=== PATIENT | male | born 1980 | race Two or more races ===

== ENCOUNTER 2016-09-15 05:44 | Day surgery (SDC) | payer OTHER ==
--- NOTE | 2016-09-14 14:41 | HP ---
DATE OF CLINIC: 08/24/2016 LANCE WOODS : 1980 PLANNED PROCEDURE: Left Distal Biceps Tendon Repair/Reconstruction DATE OF SURGERY: September 15, 2016 SURGEON: Keanu Reno M.D. HISTORY OF PRESENT ILLNESS Lance Woods is a 36 year old male. * Medication list reviewed with patient allergy list reviewed with patient. This is a 36-year-old gentleman with a left distal biceps tendon injury at the end of July. He was previously seen and sent for an MRI. He returns to review the MRI and discuss a path going forward. He has no pain at this point but does note significant ongoing weakness and his left arm. PAST MEDICAL AND SURGICAL HISTORY: His past medical and surgical history are unchanged. CURRENT MEDICATION * Acyclovir 200 MG Capsule unknown dose, 0 days, 0 refills SOCIAL HISTORY Behavioral: Tobacco use rarely, current smoker, and smoking status: Current some day smoker. Alcohol: Alcohol Minimal/Not often. Drug Use: Not using drugs. 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 ALLERGIES * No Known Allergies REVIEW OF SYSTEMS No recent constitutional symptoms to include fevers and chills. No recent cardiovascular symptoms to include chest pain or palpitations. No recent respiratory symptoms to include shortness of breath or recent infections. PHYSICAL FINDINGS * Vitals taken 08/24/2016 09:40 am BP-Sitting L 125/89 mmHg Pulse Rate-Sitting 76 bpm Temp-Oral 98.1 F Height 66 in Weight 185 lbs 9.6 oz Body Mass Index 30.0 kg/m2 Body Surface Area 1.94 m2 Pain Level 0 Ears, Nose, Throat: * ENT: normal. Lungs: * Clear to auscultation. Cardiovascular: Heart Rate and Rhythm: * Normal. Abdomen: * Normal. Neurological: Motor: * Dominant Hand = Right Hand. Patient is a well-developed, well-nourished male in no acute distress. They are awake, alert and conversant throughout the encounter. CARDIOVASCULAR: Intact peripheral pulses on bilateral upper extremities. No significant edema on inspection of bilateral upper extremities. NEUROLOGIC: Patient had intact coordinated composite motion of the bilateral upper extremities and sensation intact to light touch in all distributions of bilateral upper extremities. PSYCHIATRIC: Patient was oriented to person, place and time and displayed appropriate mood and affect during the encounter. SKIN: Exam of the skin on bilateral upper extremities showed no significant scars, lesions, rashes or masses. FOCUSED MUSCULOSKELETAL EXAM: Normal resting station of the shoulders, elbows and wrists. His left arm shows a hollow area just proximal to the antecubital fossa. He does not get active contraction of the biceps when he flexes the elbow against resistance. He has weakness on this side. He is about a 4/5 compared to 5/5 on the contralateral side. Sensation is intact throughout. The hand is warm and well perfused. He has full-motion, normal resting tone. IMAGING: A review of his MRI demonstrates a complete rupture of his biceps tendon with 7 cm of retraction and ongoing inflammation in the area. ASSESSMENT A 36-year-old gentleman with a complete left distal biceps tendon injury avulsed from the bicipital tuberosity. THERAPY * Patient not eligible for fall risk assessment. PLAN * Strain of musc/fasc/tend prt biceps, left arm, subs Percocet 5-325 MG TABS, 1 every 4 - 6 hours as needed, 14 days, 0 refills * Resection of long biceps tendon -left distal biceps tendon repair/reconstruction The plan will be for a repair versus reconstruction. We will have a cadaver piece available for augment if required and we will use the Arthrex distal biceps repair kit. We will see him back for surgery in 2 to 3 weeks. SURGICAL CONSENT We have discussed surgical options including left distal biceps tendon repair/reconstruction and non-operative management. The patient was counseled in detail regarding the diagnosis, treatment options available, prognosis of each treatment option and the potential risks and complications. The risks of surgery include, but are not limited to, anesthetic , neurovascular complications, pulmonary embolism, deep vein thrombosis, wound dehiscence, failure of any or all of the discussed procedures, infection of the joint or surrounding soft tissue, need for revision surgery, chronic pain, limitations in activities of daily living, inability to return to work, and loss of normal range of motion or functional use of the extremity. There is the possibility of failure over time that may require additional operative or non-operative treatment. The patient acknowledged that there are a number of perioperative risks not mentioned here and would still like to proceed. The patient is aware of and understands these risks, and wishes to proceed with the proposed surgical procedure and other procedures as indicated at the time of surgery. We will have the patient see their PCP for a preoperative medical risk assessment. The preoperative instructions were reviewed with the patient and all questions were answered. PB/sg
[2016-09-15] MEDS ORDERED: CEFAZOLIN SODIUM 2 GRAM PREMIX 100 ML IV PRN (05:45)
[2016-09-15] MEDS ORDERED: IV START KIT ONE (05:54)
[2016-09-15] MEDS ORDERED: LACTATED RINGERS 1,000 ML ONE ×2 (05:54→11:16)
[2016-09-15] MEDS ORDERED: CEFAZOLIN SODIUM 2 GRAM PREMIX 100 ML IV ONE (05:55)
[2016-09-15] MEDS ORDERED: PROPOFOL 20 ML IV ONE (06:50)
[2016-09-15] MEDS ORDERED: MIDAZOLAM HCL 1 MG/ML 2ML VIAL ONE (06:50)
[2016-09-15] MEDS ORDERED: FENTANYL 100 MCG/2 ML VIAL ONE ×4 (06:50→10:33)
[2016-09-15] MEDS ORDERED: NERVE BLOCK PROCEDURAL TRAY 1 EACH ONE (06:53)
[2016-09-15] MEDS ORDERED: ROPIVACAINE 0.5% 30 ML VIAL ONE (06:53)
[2016-09-15] MEDS ORDERED: BUPIVACAINE 0.5% (PRES FREE) 30 ML VIAL ONE (07:05)
[2016-09-15] MEDS ORDERED: ROCURONIUM BROMIDE 10 MG/ML DOSE IV ONE (08:03)
[2016-09-15] MEDS ORDERED: ONDANSETRON 4 MG/2ML 2 ML VIAL ONE (08:08)
[2016-09-15] MEDS ORDERED: DEXAMETHASONE SOD PHOS 4 MG/1 ML VIAL ONE (08:08)
[2016-09-15] MEDS ORDERED: LABETALOL HCL 5 MG/ML 20ML VIAL IV PRN (08:51)
[2016-09-15] MEDS ORDERED: ATROPINE SULFATE 0.4 MG/1 ML VIAL IV PRN (08:51)
[2016-09-15] MEDS ORDERED: NALOXONE HCL 0.4 MG/ML VIAL IV PRN (08:51)
[2016-09-15] MEDS ORDERED: HYDRALAZINE HCL 20 MG/1 ML VIAL IV PRN (08:51)
[2016-09-15] MEDS ORDERED: MEPERIDINE 25 MG/ML SYRINGE IV PRN (08:51)
[2016-09-15] MEDS ORDERED: HYDROMORPHONE HCL 1 MG/ML SYRINGE IV PRN (08:51)
[2016-09-15] MEDS ORDERED: PROMETHAZINE HCL 25 MG/ML VIAL IM PRN (08:51)
[2016-09-15] MEDS ORDERED: FENTANYL 100 MCG/2 ML VIAL IV PRN (08:51)
[2016-09-15] MEDS ORDERED: ONDANSETRON 4 MG/2ML 2 ML VIAL IV PRN ×2 (08:51→10:50)
[2016-09-15] MEDS ORDERED: LACTATED RINGERS 1,000 ML IV SCH ×2 (09:00→10:50)
--- NOTE | 2016-09-15 10:07 | PCMBPN ---
Brief Post Op Note: Date of Procedure: 09/15/16 Start Time: 929 Preoperative Diagnosis: 1. left distal biceps tendon rupture Postoperative Diagnosis: 1. Same Procedure: left distal biceps tendon repair Surgeon: Keanu Reno MD Assist: Chacorta Fairchild PA-C Anesthesia: Bret Hebert CRNA Findings: as above Condition: stable to PACU Complications: none IV Fluids: 1300 mLs of LR Urine Output: 0 mLs Estimated Blood Loss: 25 mLs Tourniquet Time: 43 min at 250 mm Hg Specimens: none Implants: Arthrex distal biceps tenodesis button and biocomposite tenodesis screw Drains: none Keanu Reno MD
[2016-09-15] MEDS ORDERED: DIPHENHYDRAMINE HCL 50 MG/1 ML VIAL IV PRN (10:50)
[2016-09-15] MEDS ORDERED: OXYCODONE/ACETAMINOPHEN 5/325 MG TABLET PO PRN (10:50)
[2016-09-15] MEDS ORDERED: ACETAMINOPHEN 325 MG TABLET PO PRN (10:50)
[2016-09-15] MEDS ORDERED: HYDROMORPHONE HCL 1 MG/ML SYRINGE ONE (11:16)
[2016-09-15] MEDS: HYDROMORPHONE HCL 1 MG/ML SYRINGE IV PRN ×2 (11:25→11:46)
[2016-09-15] MEDS ORDERED: OXYCODONE/ACETAMINOPHEN 5/325 MG TABLET ONE ×2 (11:58)
--- NOTE | 2016-09-15 13:12 | RAD ---
Exam: Two-view left elbow COMPARISON: 08/09/2016 INDICATION: Status post left biceps tendon repair. FINDINGS: AP and lateral views of left elbow were obtained. There is a lucency through and an anchor adjacent to the proximal diaphysis of the radius compatible with history of biceps tendon repair. Subcutaneous gas is identified, as expected. There is no joint effusion. No fracture is identified. IMPRESSION: Significant postoperative appearance following biceps tendon repair.
--- NOTE | 2016-09-15 13:18 | RAD ---
Exam: Two-view left elbow COMPARISON: None INDICATION: Left distal biceps tendon repair. FINDINGS: Fluoroscopy was provided for Dr. Reno. 16 seconds of fluoroscopy time was utilized. Radiologist was not present. 2 static images were submitted for interpretation. These images demonstrate an anchor overlying the bone. This examination is otherwise limited for interpretation. IMPRESSION: Fluoroscopy was provided for Dr. Reno. Please see his notes for discussion.
--- NOTE | 2016-09-16 10:55 | OP ---
Gorge WOODS : 1980 [id number] DATE OF SERVICE: September 15, 2016 PREOPERATIVE DIAGNOSIS: Left distal biceps tendon rupture. POSTOPERATIVE DIAGNOSIS: Left distal biceps tendon rupture. PROCEDURE PERFORMED: LEFT DISTAL BICEPS TENDON REPAIR. SURGEON: Keanu Reno M.D. PICKLE WATER PUMP OPERATOR: Chacorta Fairchild P.A.-C. ANESTHESIA: Sia OliverR.N.Willy. SPECIMENS: No material was sent to the laboratory. ESTIMATED BLOOD LOSS: 25 mL. INTRAVENOUS FLUIDS: 1,300 mL of crystalloid. TOURNIQUET TIME: 43 minutes at 250 mmHg. IMPLANTS: Arthrex distal biceps tenodesis button and a BioComposite tenodesis screw. DRAINS: No drains. INDICATIONS: This is a 36-year-old male who sustained an acute left distal biceps tendon injury. Exam and imaging documented a complete tendon injury with retraction. In order to retain and restore function he was offered a biceps tendon repair. The patient elected to proceed after a discussion of risks and benefits. DESCRIPTION OF PROCEDURE: The patient was identified in the preoperative holding area where he was marked with indelible marker by the operating surgeon. He had a regional block placed by the anesthesia providers. He was taken to the operating room where he succumbed to general anesthesia. He was positioned in the supine position with his arm extended on a hand table. A sterile tourniquet was utilized. He was prepped and draped in the usual sterile fashion for surgery. He received perioperative antibiotics. An operative time out was performed and confirmed by all members of the operative team. The arm was elevated and exsanguinated and his tourniquet was inflated. An S curved incision centered over the level of the biceps tuberosity, bicipital tuberosity of the proximal radius was created. Blunt dissection was carried down identifying the biceps tendon and its associated hematoma. The elbow was flexed and the biceps tendon was brought out through the wound. The degenerative tissue at the tip of it was debrided and then it was whip-stitched using a #2 FiberWire. Dissection was carried down identifying the bicipital tuberosity and with the hand in full supination to protect the posterior interosseous nerve we placed two Hohmann retractors one on each side of the radius. The guide pin for the tenodesis kit was drilled bicortically through the radius and then we reamed over this with a size 7 mm reamer. The biceps tendon was threaded onto the sutures that had been placed on the biceps tendon. This was deployed on the backside of the radius and tension was applied to take the tendon down into the intramedullary space of the proximal radius. The biceps tenodesis screw was threaded with one limb of the suture and then placed into the corticotomy creating an interference fit. The sutures were tied over this as a backup. At this point the arm was taken through a range of motion and no gapping was noted at the repair site. The wound was copiously irrigated with sterile saline and closed in layers. A sterile dressing of Xeroform, fluffs, web roll and an CRISTIN bandage was applied. The tourniquet was deflated, the drapes were removed. The patient was awakened from his anesthesia, extubated in the operating room and transferred to a stretcher and taken postoperatively to the postanesthesia care unit in stable condition. There were no observed intraoperative complications during this procedure. Job [id number] Cc: [facility]
== END 2016-09-15 12:55 | disposition home or self-care (01) ==
LOC: SDC 05:44
PROVIDERS: ATTEND Orthopaedic Surgery
DX: S46.212A Strain of muscle, fascia and tendon of other parts of biceps, left arm, initial encounter (principal); F17.200 Nicotine dependence, unspecified, uncomplicated
CPT/HCPCS: 76000; 73070 ×2; 24342; J1170; J3010 ×4; J1100; J2795; A9270 ×2; J2250; J2405; J7120 ×2; J0690